=== PATIENT | male | born 1960 | race Caucasian/White ===

== ENCOUNTER 2024-08-10 09:05 | Outpatient (CLI) | payer OTHER, SELFPAY ==
--- NOTE | 2024-08-10 10:59 | P.ANES_ITS ---
Anesthesia Charges Start Date/Time Anesthesia Start Date: 08/10/24 Anesthesia Start Time: 10:23 Stop Date/Time Anesthesia Stop Date: 08/10/24 Anesthesia Stop Time: 10:55 Coding CPT Codes CPT Codes: WALTER LWR INTST NDSC NOS - [id number] ([id number]) P2 - PATIENT W/MILD SYST DISEASE, QK - SCALEMAKER 2-4 CNCRNT ANES PROC, QX - ASSISTANT PROJECT MANAGER SVC W/ MD MED DIRECTION
--- NOTE | 2024-08-10 10:59 | W.ANESCHARGE ---
Anesthesia Charges Start Date/Time Anesthesia Start Date: 08/10/24 Anesthesia Start Time: 10:23 Stop Date/Time Anesthesia Stop Date: 08/10/24 Anesthesia Stop Time: 10:55 Coding CPT Codes CPT Codes: WALTER LWR INTST NDSC NOS - [id number] ([id number]) P2 - PATIENT W/MILD SYST DISEASE, QK - DERMATOLOGY PHYSICIAN 2-4 CNCRNT ANES PROC, QX - HOISTING ENGINEER SVC W/ MD MED DIRECTION
--- NOTE | 2024-08-10 11:04 | P.ANES_ITS ---
Anesthesia Charges Start Date/Time Anesthesia Start Date: 08/10/24 Anesthesia Start Time: 10:23 Stop Date/Time Anesthesia Stop Date: 08/10/24 Anesthesia Stop Time: 10:55 Coding CPT Codes CPT Codes: WALTER LWR INTST NDSC NOS - [id number] ([id number]) QK - INSPECTOR WATCH TRAIN 2-4 CNCRNT ANEMireille PROC, QX - CAR REPAIR SUPERVISOR SVC W/ MD MED DIRECTION, P2 - PATIENT W/MILD SYST DISEASE
--- NOTE | 2024-08-10 11:04 | W.ANESCHARGE ---
Anesthesia Charges Start Date/Time Anesthesia Start Date: 08/10/24 Anesthesia Start Time: 10:23 Stop Date/Time Anesthesia Stop Date: 08/10/24 Anesthesia Stop Time: 10:55 Coding CPT Codes CPT Codes: WALTER LWR INTST NDSC NOS - [id number] ([id number]) QK - TOOL/DIE MAKER 2-4 CNCRNT ANEMireille PROC, QX - PUBLIC EVENTS FACILITIES RENTAL MANAGER SVC W/ MD MED DIRECTION, P2 - PATIENT W/MILD SYST DISEASE
== END 2024-08-10 09:06 | disposition home or self-care (01) ==
PROVIDERS: PCP Family Medicine; Visit Provider Surgery
DX: Z12.11 Encounter for screening for malignant neoplasm of colon (principal); D12.2 Benign neoplasm of ascending colon; D12.4 Benign neoplasm of descending colon; D12.7 Benign neoplasm of rectosigmoid junction
CPT/HCPCS: 00811; 00812; 45385; 88305; J2704